=== PATIENT | male | born 1975 | race Caucasian/White ===

== ENCOUNTER 2016-10-20 04:50 | Emergency (ER) | payer OTHER ==
--- NOTE | 2016-10-21 01:26 | ER ---
ADMIT: 10/20/2016 RM/LOC: ER [facility] MR#: [id number] [facility] [address] [place], [place] [id number] JAVAN ODOM [address] [place] [id number] Emergency Room Report SEX: M AGE: 41 : 1975 DATE: 10/20/2016 TIME: 04:50. Please refer to my T-sheet for complete H and P. HISTORY OF PRESENT ILLNESS: Briefly, the patient is a 41-year-old, who is at work. He works at [employer] when he got his fingers caught in a conveyor belt left hand. He is right handed. PHYSICAL EXAMINATION: His ring finger has a degloving from the DIP joint out. His long and small finger have abrasion in the epidermis on the distal phalanx all distal to the PIP joint. No injury to the dorsums on the long and small finger. EMERGENCY DEPARTMENT COURSE: I took off the skin of the small and long finger. I did digital blocks in all 3 using 3 mL of bupivacaine injected volarly at the MP crease. He had good anesthesia. They were all cleansed with saline wash. The ring finger was covered with a non-stick Telfa and a tube gauze, the others with Band-Aids. The patient tolerated well. I had a long discussion with him. He was given Keflex and 2 [place] and ready for discharge. ASSESSMENT: 1. Degloving of his ring finger on the left hand from the DIP joint out with the remaining tissue intact. 2. Abrasions to the long and small fingers. PLAN: Keep in the tube gauze. Follow up with Shonda this week. Return if worse. Keflex 500 t.i.d. for 5 days. [place] 5s, gave him 20. Aaron Khalil MD/ [place] JOB #: [id number] CC: Aaron Khalil MD, Attending Physician Jorge Gaona MD, Family Physician Wicho Merchant MD
== END 2016-10-20 05:35 | disposition home or self-care (01) ==
LOC: ER 04:50
PROC: 3E0T3CZ (ICD-10-PCS; principal; 2016-10-20)
DX: S61.204A Unspecified open wound of right ring finger without damage to nail, initial encounter (principal); S60.413A Abrasion of left middle finger, initial encounter; S60.417A Abrasion of left little finger, initial encounter; F17.210 Nicotine dependence, cigarettes, uncomplicated; W31.89XA Contact with other specified machinery, initial encounter; Y92.69 Other specified industrial and construction area as the place of occurrence of the external cause; Y99.0 Civilian activity done for income or pay